=== PATIENT | female | born 1950 | race Caucasian/White ===

== ENCOUNTER 2021-02-26 19:57 | Inpatient (IN) ==
[2021-02-26 20:33] LABS: ABG Base Excess -1 mEq/L (-2 to 3); ABG HCO3 21 mEq/L (21-27); ABG Oxygen Saturation 91 % (95-98); ABG PCO2 29 mmHg (35-45); ABG PH 7.48 pH Units (7.32-7.45); ABG PO2 56 mmHg (85-104); ABG TCO2 22 mEq/L (20-26)
[2021-02-26 21:16] LABS: Basophils % 0.1 %; Hematocrit 42.6 % (35.3-44.9); Hemoglobin 14.5 g/dL (11.5-15.4); Immature Granulocytes % 0.6 % (0-4); Lymphocytes # 0.8 K/mcL (0.6-4.6); Lymphocytes % 9.4 %; Mean Corpuscular Hemoglobin 30.3 pg (28.0-33.3); Mean Corpuscular Volume 88.9 fL (83.0-100.0); Mean Platelet Volume 10.7 fL (9.4-12.4); Monocytes % 12.9 %; Neutrophils # 6.2 K/mcL (1.6-8.9); Platelet Count 143 K/mcL (140-400); Red Blood Count 4.79 M/mcL (3.82-4.97); White Blood Count 8.1 K/mcL (4.3-11.1)
[2021-02-26 21:26] LABS: INR 1.2; Prothrombin Time 13.4 Seconds (9.4-12.1)
[2021-02-26 21:28] LABS: Activated Partial Thrombo Time 25.7 Seconds (26.0-36.0)
[2021-02-26 21:39] LABS: Alanine Aminotransferase 19 Units/L (7-52); Albumin 3.7 g/dL (3.5-5.7); Alkaline Phosphatase 65 Units/L (34-104); Aspartate Amino Transferase 48 Units/L (13-39); BUN/Creatinine Ratio 41 (6-26); Bilirubin,Direct 0.3 mg/dL (0.0-0.2); Bilirubin,Indirect 0.6 mg/dL (0.0-1.0); Bilirubin,Total 0.9 mg/dL (0.3-1.0); Blood Urea Nitrogen 31 mg/dL (8-23); C-Reactive Protein 102 mg/L (Less than 10); Calcium 8.5 mg/dL (8.6-10.3); Carbon Dioxide 22 mEq/L (23-29); Chloride 97 mEq/L (98-107); Globulin 3.6 g/dL (2.4-3.5); Glucose 123 mg/dL (70-105); Lactate Dehydrogenase 294 Units/L (140-271); Magnesium 1.5 mg/dL (1.6-2.6); Osmolality,Calculated 280 (280-300); Phosphorous 2.5 mg/dL (2.7-4.5); Potassium 3.7 mEq/L (3.5-5.1); Sodium 131 mEq/L (136-145); Total Protein 7.3 g/dL (6.4-8.9); Troponin I < 0.03 ng/mL (< 0.04); eGFR For African Americans > 60 (> 60); eGFR For Non-African Americans > 60 (> 60)
[2021-02-26] MEDS ORDERED: Dexamethasone 4 MG/ML VIAL IVP ONE (21:56)
[2021-02-26 21:58] LABS: Ferritin 712 ng/mL (10-120)
[2021-02-26] MEDS ORDERED: Furosemide 40 MG/4 ML VIAL IVP ONE (22:55)
[2021-02-26] MEDS ORDERED: Melatonin 3 MG TABLET PO PRN (23:31)
[2021-02-26] MEDS ORDERED: Ondansetron 4 MG/2 ML VIAL IVP PRN (23:31)
[2021-02-26] MEDS ORDERED: Naloxone 0.4 MG/ML INJ IVP PRN (23:31)
[2021-02-27 00:50] LABS: Hematocrit 42.7 % (35.3-44.9); Hemoglobin 14.1 g/dL (11.5-15.4); Immature Granulocytes % 0.8 % (0-4); Immature Platelets 7.2 % (1.1-6.1); Lymphocytes # 0.5 K/mcL (0.6-4.6); Lymphocytes % 4.9 %; Mean Corpuscular Hemoglobin 29.6 pg (28.0-33.3); Mean Corpuscular Volume 89.7 fL (83.0-100.0); Mean Platelet Volume 10.9 fL (9.4-12.4); Monocytes % 9.8 %; Neutrophils # 8.9 K/mcL (1.6-8.9); Platelet Count 138 K/mcL (140-400); Red Blood Count 4.76 M/mcL (3.82-4.97); Segmented Neutrophils % 84.5 %; White Blood Count 10.5 K/mcL (4.3-11.1)
[2021-02-27 01:08] LABS: BUN/Creatinine Ratio 41 (6-26); Blood Urea Nitrogen 30 mg/dL (8-23); C-Reactive Protein 122 mg/L (Less than 10); Calcium 8.3 mg/dL (8.6-10.3); Carbon Dioxide 21 mEq/L (23-29); Chloride 97 mEq/L (98-107); Glucose 148 mg/dL (70-105); Lactate Dehydrogenase 300 Units/L (140-271); Osmolality,Calculated 279 (280-300); Phosphorous 3.1 mg/dL (2.7-4.5); Sodium 130 mEq/L (136-145); eGFR For African Americans > 60 (> 60); eGFR For Non-African Americans > 60 (> 60)
[2021-02-27 01:26] LABS: Ferritin 704 ng/mL (10-120)
[2021-02-27] MEDS ORDERED: Ipratropium 1 PUFF INHALER IH PRN (02:23)
[2021-02-27] MEDS ORDERED: Furosemide 20 MG/2 ML VIAL IVP ONE (02:25)
[2021-02-27] MEDS ORDERED: *HR* Enoxaparin 150 MG/ML SYRINGE SQ SCH (02:30)
[2021-02-27] MEDS: *HR* Rivaroxaban 15 MG TABLET PO SCH ×2 (03:44→20:04)
[2021-02-27 06:11] LABS: Bacteria,Urine Few per hpf (None-Few); Bilirubin,Urine Negative (Negative); Blood,Urine Trace (Negative); Clarity,Urine Clear (Clear); Color,Urine Yellow (Yellow); Glucose,Urine (UA) Normal (Normal); Ketones,Urine Negative (Negative); Leukocyte Esterase,Urine Small (Negative); Mucus,Urine Few per lpf (None-Few); Nitrite,Urine Positive (Negative); Protein,Urine 50 mg/dL (Neg-Trace); RBC,Urine 0-3 per hpf (0-3); Specific Gravity,Urine 1.022 (1.010-1.025); Squamous Epithelial Cell,Urine Few per hpf (None-Few); Urobilinogen,Urine Normal (Normal)
[2021-02-27] MEDS ORDERED: Dexamethasone Sodium Phos/PF 10 MG/ML VIAL IVP SCH (09:00)
[2021-02-27] MEDS ORDERED: lisinopriL 20 MG TABLET PO SCH (09:00)
[2021-02-27] MEDS: atenoloL 50 MG TABLET PO SCH (09:05)
[2021-02-27] MEDS: Acetaminophen 325 MG TABLET PO PRN (09:18)
[2021-02-27] MEDS ORDERED: Cefepime HCl 1,000 MG in 0.9 % Sodium Chloride Mini Bag 100 ML IVPB SCH (09:39)
[2021-02-27] MEDS ORDERED: Dexamethasone 4 MG/ML VIAL IVP ONE (14:57)
[2021-02-27] MEDS: Cefepime HCl 2,000 MG in 0.9 % Sodium Chloride Mini Bag 100 ML IVPB SCH (20:04)
[2021-02-28 03:26] LABS: Red Blood Count 4.53 M/mcL (3.82-4.97)
[2021-02-28 03:28] LABS: Hematocrit 41.6 % (35.3-44.9); Hemoglobin 13.6 g/dL (11.5-15.4); Immature Platelets 8.7 % (1.1-6.1); Mean Corpuscular HGB Conc 32.7 g/dL (31.6-35.5); Mean Corpuscular Volume 91.8 fL (83.0-100.0); Mean Platelet Volume 11.4 fL (9.4-12.4); Red Cell Distribution Width 13.3 % (11.5-14.5); White Blood Count 12.8 K/mcL (4.3-11.1)
[2021-02-28 03:58] LABS: BUN/Creatinine Ratio 42 (6-26); Blood Urea Nitrogen 40 mg/dL (8-23); Calcium 8.2 mg/dL (8.6-10.3); Carbon Dioxide 19 mEq/L (23-29); Chloride 98 mEq/L (98-107); Glucose 129 mg/dL (70-105); Osmolality,Calculated 277 (280-300); Potassium 4.2 mEq/L (3.5-5.1); Sodium 128 mEq/L (136-145); eGFR For African Americans > 60 (> 60); eGFR For Non-African Americans 58 (> 60)
[2021-02-28] MEDS: Cefepime HCl 2,000 MG in 0.9 % Sodium Chloride Mini Bag 100 ML IVPB SCH ×3 (05:42→20:19)
[2021-02-28] MEDS ORDERED: Furosemide 40 MG/4 ML VIAL IVP ONE (06:00)
[2021-02-28] MEDS: Dexamethasone Sodium Phos/PF 10 MG/ML VIAL IVP SCH (10:29)
[2021-02-28] MEDS: *HR* Rivaroxaban 15 MG TABLET PO SCH (10:29)
[2021-02-28] MEDS: atenoloL 50 MG TABLET PO SCH (10:30)
[2021-02-28] MEDS ORDERED: *HR* Enoxaparin 120 MG/0.8 ML SYRINGE SQ SCH (18:00)
[2021-02-28] MEDS ORDERED: Heparin 25,000UNIT/250ML 1/2NS 25,000 UNIT/250 ML IV.SOLN IVC SCH (22:30)
[2021-02-28] MEDS ORDERED: *HR* Heparin 5,000 UNIT/ML VIAL IVP PRN ×2 (22:30)
[2021-02-28] MEDS: Heparin 25,000UNIT/250ML 1/2NS 25,000 UNIT/250 ML IV.SOLN IVC SCH (22:58)
[2021-03-01] MEDS: Cefepime HCl 2,000 MG in 0.9 % Sodium Chloride Mini Bag 100 ML IVPB SCH ×3 (03:39→20:24)
[2021-03-01 06:11] LABS: Basophils % 0.1 %; Hematocrit 41.9 % (35.3-44.9); Immature Granulocytes % 0.7 % (0-4); Lymphocytes # 1.1 K/mcL (0.6-4.6); Lymphocytes % 11.9 %; Mean Corpuscular HGB Conc 33.4 g/dL (31.6-35.5); Mean Corpuscular Hemoglobin 29.8 pg (28.0-33.3); Mean Corpuscular Volume 89.1 fL (83.0-100.0); Mean Platelet Volume 11.1 fL (9.4-12.4); Monocytes # 0.7 K/mcL (0.0-1.3); Monocytes % 7.3 %; Neutrophils # 7.5 K/mcL (1.6-8.9); Platelet Count 209 K/mcL (140-400); White Blood Count 9.4 K/mcL (4.3-11.1)
[2021-03-01 06:14] LABS: BUN/Creatinine Ratio 48 (6-26); Blood Urea Nitrogen 43 mg/dL (8-23); Carbon Dioxide 22 mEq/L (23-29); Chloride 99 mEq/L (98-107); Glucose 126 mg/dL (70-105); Potassium 4.4 mEq/L (3.5-5.1); Sodium 130 mEq/L (136-145); eGFR For African Americans > 60 (> 60); eGFR For Non-African Americans > 60 (> 60)
[2021-03-01 06:15] LABS: Alanine Aminotransferase 14 Units/L (7-52); Albumin 3.2 g/dL (3.5-5.7); Albumin/Globulin Ratio 0.9 (1.1-2.2); Alkaline Phosphatase 56 Units/L (34-104); Aspartate Amino Transferase 26 Units/L (13-39); Bilirubin,Total 0.9 mg/dL (0.3-1.0); Calcium 8.5 mg/dL (8.6-10.3); Globulin 3.6 g/dL (2.4-3.5); Osmolality,Calculated 282 (280-300); Total Protein 6.8 g/dL (6.4-8.9)
[2021-03-01] MEDS: atenoloL 50 MG TABLET PO SCH (07:23)
[2021-03-01] MEDS: Dexamethasone Sodium Phos/PF 10 MG/ML VIAL IVP SCH (07:23)
[2021-03-01] MEDS: Heparin 25,000UNIT/250ML 1/2NS 25,000 UNIT/250 ML IV.SOLN IVC SCH (16:41)
[2021-03-01] MEDS ORDERED: Cefepime HCl 2,000 MG in 0.9 % Sodium Chloride Mini Bag 100 ML IVPB SCH (18:00)
[2021-03-01] MEDS: Sennosides/Docusate Sodium TABLET PO SCH (20:25)
[2021-03-01] MEDS: Acetaminophen 325 MG TABLET PO PRN (20:26)
[2021-03-02 04:39] LABS: Basophils % 0.2 %; Hematocrit 42.6 % (35.3-44.9); Hemoglobin 14.4 g/dL (11.5-15.4); Immature Granulocytes % 0.8 % (0-4); Lymphocytes # 1.3 K/mcL (0.6-4.6); Lymphocytes % 10.3 %; Mean Corpuscular HGB Conc 33.8 g/dL (31.6-35.5); Mean Corpuscular Hemoglobin 30.6 pg (28.0-33.3); Mean Corpuscular Volume 90.4 fL (83.0-100.0); Mean Platelet Volume 10.8 fL (9.4-12.4); Monocytes # 1.1 K/mcL (0.0-1.3); Monocytes % 8.3 %; Neutrophils # 10.2 K/mcL (1.6-8.9); Platelet Count 208 K/mcL (140-400); Red Blood Count 4.71 M/mcL (3.82-4.97); Red Cell Distribution Width 12.8 % (11.5-14.5); Segmented Neutrophils % 80.4 %; White Blood Count 12.6 K/mcL (4.3-11.1)
[2021-03-02 05:02] LABS: BUN/Creatinine Ratio 57 (6-26); Blood Urea Nitrogen 47 mg/dL (8-23); Calcium 8.4 mg/dL (8.6-10.3); Carbon Dioxide 19 mEq/L (23-29); Chloride 101 mEq/L (98-107); Glucose 129 mg/dL (70-105); Osmolality,Calculated 284 (280-300); Potassium 4.7 mEq/L (3.5-5.1); Sodium 130 mEq/L (136-145); eGFR For African Americans > 60 (> 60); eGFR For Non-African Americans > 60 (> 60)
[2021-03-02] MEDS: Cefepime HCl 2,000 MG in 0.9 % Sodium Chloride Mini Bag 100 ML IVPB SCH ×3 (05:37→20:56)
[2021-03-02] MEDS: Sennosides/Docusate Sodium TABLET PO SCH ×2 (07:39→20:57)
[2021-03-02] MEDS: Dexamethasone Sodium Phos/PF 10 MG/ML VIAL IVP SCH (07:40)
[2021-03-02] MEDS: atenoloL 50 MG TABLET PO SCH (09:22)
[2021-03-02] MEDS: Heparin 25,000UNIT/250ML 1/2NS 25,000 UNIT/250 ML IV.SOLN IVC SCH ×2 (13:19→15:39)
[2021-03-02] MEDS: Acetaminophen 325 MG TABLET PO PRN (20:58)
[2021-03-03] MEDS: Cefepime HCl 2,000 MG in 0.9 % Sodium Chloride Mini Bag 100 ML IVPB SCH ×3 (05:16→20:24)
[2021-03-03] MEDS: Acetaminophen 325 MG TABLET PO PRN (05:52)
[2021-03-03] MEDS: atenoloL 50 MG TABLET PO SCH (08:08)
[2021-03-03] MEDS: Dexamethasone Sodium Phos/PF 10 MG/ML VIAL IVP SCH (08:08)
[2021-03-03] MEDS: Sennosides/Docusate Sodium TABLET PO SCH ×2 (08:08→20:24)
[2021-03-03] MEDS: Heparin 25,000UNIT/250ML 1/2NS 25,000 UNIT/250 ML IV.SOLN IVC SCH ×2 (09:22→20:19)
[2021-03-03] MEDS: Benzonatate 100 MG CAPSULE PO PRN ×2 (11:14→20:25)
[2021-03-03] MEDS: Melatonin 3 MG TABLET PO SCH (20:25)
[2021-03-04 02:03] LABS: Basophils % 0.3 %; Eosinophils % 0.3 %; Hematocrit 40.2 % (35.3-44.9); Hemoglobin 13.4 g/dL (11.5-15.4); Immature Granulocytes % 2.1 % (0-4); Lymphocytes # 1.1 K/mcL (0.6-4.6); Lymphocytes % 9.1 %; Mean Corpuscular HGB Conc 33.3 g/dL (31.6-35.5); Mean Corpuscular Hemoglobin 29.8 pg (28.0-33.3); Mean Corpuscular Volume 89.3 fL (83.0-100.0); Mean Platelet Volume 10.5 fL (9.4-12.4); Monocytes # 1.1 K/mcL (0.0-1.3); Monocytes % 9.6 %; Neutrophils # 9.3 K/mcL (1.6-8.9); Platelet Count 206 K/mcL (140-400); Red Cell Distribution Width 12.6 % (11.5-14.5); Segmented Neutrophils % 78.6 %; White Blood Count 11.8 K/mcL (4.3-11.1)
[2021-03-04 02:36] LABS: BUN/Creatinine Ratio 48 (6-26); Blood Urea Nitrogen 32 mg/dL (8-23); Calcium 8.2 mg/dL (8.6-10.3); Carbon Dioxide 19 mEq/L (23-29); Chloride 102 mEq/L (98-107); Glucose 151 mg/dL (70-105); Osmolality,Calculated 276 (280-300); Potassium 4.9 mEq/L (3.5-5.1); Sodium 128 mEq/L (136-145); eGFR For African Americans > 60 (> 60); eGFR For Non-African Americans > 60 (> 60)
[2021-03-04] MEDS: Cefepime HCl 2,000 MG in 0.9 % Sodium Chloride Mini Bag 100 ML IVPB SCH ×3 (05:20→20:01)
[2021-03-04] MEDS: Dexamethasone Sodium Phos/PF 10 MG/ML VIAL IVP SCH (07:41)
[2021-03-04] MEDS: Sennosides/Docusate Sodium TABLET PO SCH ×2 (07:41→20:01)
[2021-03-04] MEDS: atenoloL 50 MG TABLET PO SCH (07:42)
[2021-03-04] MEDS: *HR* Rivaroxaban 15 MG TABLET PO SCH ×2 (10:38→20:01)
[2021-03-04] MEDS: Melatonin 3 MG TABLET PO SCH (20:01)
[2021-03-05] MEDS: Cefepime HCl 2,000 MG in 0.9 % Sodium Chloride Mini Bag 100 ML IVPB SCH (05:55)
[2021-03-05] MEDS: *HR* Rivaroxaban 15 MG TABLET PO SCH ×2 (09:00→21:20)
[2021-03-05] MEDS: Dexamethasone Sodium Phos/PF 10 MG/ML VIAL IVP SCH (09:00)
[2021-03-05] MEDS: Sennosides/Docusate Sodium TABLET PO SCH ×2 (09:00→21:20)
[2021-03-05] MEDS: atenoloL 50 MG TABLET PO SCH (09:00)
[2021-03-05] MEDS: cefTRIAXone 2,000 MG in Water for inj. (sterile) 20 ML IVP SCH (10:58)
[2021-03-05] MEDS ORDERED: MOM Conc 10 ML UD.LIQ PO PRN (11:57)
[2021-03-05] MEDS: Melatonin 3 MG TABLET PO SCH (21:20)
[2021-03-06 00:59] LABS: Hematocrit 41.9 % (35.3-44.9); Hemoglobin 14.5 g/dL (11.5-15.4); Mean Corpuscular HGB Conc 34.6 g/dL (31.6-35.5); Mean Corpuscular Hemoglobin 30.9 pg (28.0-33.3); Mean Corpuscular Volume 89.3 fL (83.0-100.0); Mean Platelet Volume 10.4 fL (9.4-12.4); Platelet Count 247 K/mcL (140-400); Red Blood Count 4.69 M/mcL (3.82-4.97); Red Cell Distribution Width 12.8 % (11.5-14.5); White Blood Count 13.1 K/mcL (4.3-11.1)
[2021-03-06 01:19] LABS: BUN/Creatinine Ratio 46 (6-26); Blood Urea Nitrogen 33 mg/dL (8-23); Calcium 8.7 mg/dL (8.6-10.3); Carbon Dioxide 20 mEq/L (23-29); Chloride 100 mEq/L (98-107); Glucose 155 mg/dL (70-105); Osmolality,Calculated 280 (280-300); Potassium 4.7 mEq/L (3.5-5.1); Sodium 130 mEq/L (136-145); eGFR For African Americans > 60 (> 60); eGFR For Non-African Americans > 60 (> 60)
[2021-03-06] MEDS: cefTRIAXone 2,000 MG in Water for inj. (sterile) 20 ML IVP SCH (08:58)
[2021-03-06] MEDS: *HR* Rivaroxaban 15 MG TABLET PO SCH ×2 (08:58→19:59)
[2021-03-06] MEDS: Sennosides/Docusate Sodium TABLET PO SCH ×2 (08:58→19:59)
[2021-03-06] MEDS: Dexamethasone Sodium Phos/PF 10 MG/ML VIAL IVP SCH (08:58)
[2021-03-06] MEDS: atenoloL 50 MG TABLET PO SCH (08:58)
[2021-03-06] MEDS: Furosemide 20 MG/2 ML VIAL IVP SCH (15:16)
[2021-03-06] MEDS: Melatonin 3 MG TABLET PO SCH (19:59)
[2021-03-07 02:00] LABS: Basophils # 0.1 K/mcL (0.0-0.2); Basophils % 0.5 %; Eosinophils # 0.3 K/mcL (0.0-0.6); Hematocrit 43.7 % (35.3-44.9); Hemoglobin 14.5 g/dL (11.5-15.4); Immature Granulocytes % 5.1 % (0-4); Lymphocytes # 1.5 K/mcL (0.6-4.6); Lymphocytes % 10.7 %; Mean Corpuscular HGB Conc 33.2 g/dL (31.6-35.5); Mean Corpuscular Hemoglobin 29.9 pg (28.0-33.3); Mean Corpuscular Volume 90.1 fL (83.0-100.0); Mean Platelet Volume 10.7 fL (9.4-12.4); Monocytes # 1.1 K/mcL (0.0-1.3); Monocytes % 7.9 %; Neutrophils # 10.2 K/mcL (1.6-8.9); Platelet Count 264 K/mcL (140-400); Red Blood Count 4.85 M/mcL (3.82-4.97); Red Cell Distribution Width 12.9 % (11.5-14.5); Segmented Neutrophils % 73.8 %; White Blood Count 13.8 K/mcL (4.3-11.1)
[2021-03-07 02:19] LABS: Alanine Aminotransferase 11 Units/L (7-52); Albumin 3.3 g/dL (3.5-5.7); Alkaline Phosphatase 77 Units/L (34-104); Aspartate Amino Transferase 12 Units/L (13-39); BUN/Creatinine Ratio 53 (6-26); Bilirubin,Total 0.6 mg/dL (0.3-1.0); Blood Urea Nitrogen 42 mg/dL (8-23); Calcium 8.9 mg/dL (8.6-10.3); Carbon Dioxide 20 mEq/L (23-29); Chloride 99 mEq/L (98-107); Globulin 3.4 g/dL (2.4-3.5); Glucose 170 mg/dL (70-105); Osmolality,Calculated 284 (280-300); Potassium 4.9 mEq/L (3.5-5.1); Sodium 130 mEq/L (136-145); Total Protein 6.7 g/dL (6.4-8.9); eGFR For African Americans > 60 (> 60); eGFR For Non-African Americans > 60 (> 60)
[2021-03-07 02:24] LABS: Platelet Estimate Normal (Normal)
[2021-03-07] MEDS: Dexamethasone Sodium Phos/PF 10 MG/ML VIAL IVP SCH (08:33)
[2021-03-07] MEDS: cefTRIAXone 2,000 MG in Water for inj. (sterile) 20 ML IVP SCH (08:34)
[2021-03-07] MEDS: atenoloL 50 MG TABLET PO SCH (08:34)
[2021-03-07] MEDS: Sennosides/Docusate Sodium TABLET PO SCH ×2 (08:34→20:06)
[2021-03-07] MEDS: Furosemide 20 MG/2 ML VIAL IVP SCH (08:34)
[2021-03-07] MEDS: *HR* Rivaroxaban 15 MG TABLET PO SCH ×2 (08:34→20:06)
[2021-03-07] MEDS: Melatonin 3 MG TABLET PO SCH (20:06)
[2021-03-08 07:11] LABS: Basophils # 0.1 K/mcL (0.0-0.2); Basophils % 0.5 %; Eosinophils # 0.4 K/mcL (0.0-0.6); Eosinophils % 2.7 %; Hematocrit 44.8 % (35.3-44.9); Hemoglobin 14.8 g/dL (11.5-15.4); Immature Granulocytes % 3.1 % (0-4); Lymphocytes # 2.1 K/mcL (0.6-4.6); Lymphocytes % 12.9 %; Mean Corpuscular Hemoglobin 29.8 pg (28.0-33.3); Mean Corpuscular Volume 90.3 fL (83.0-100.0); Mean Platelet Volume 10.4 fL (9.4-12.4); Monocytes # 1.2 K/mcL (0.0-1.3); Monocytes % 7.6 %; Neutrophils # 11.8 K/mcL (1.6-8.9); Platelet Count 258 K/mcL (140-400); Red Blood Count 4.96 M/mcL (3.82-4.97); Red Cell Distribution Width 13.1 % (11.5-14.5); Segmented Neutrophils % 73.2 %; White Blood Count 16.1 K/mcL (4.3-11.1)
[2021-03-08 07:53] LABS: Alanine Aminotransferase 11 Units/L (7-52); Albumin 3.4 g/dL (3.5-5.7); Alkaline Phosphatase 77 Units/L (34-104); Aspartate Amino Transferase 11 Units/L (13-39); BUN/Creatinine Ratio 68 (6-26); Bilirubin,Total 0.7 mg/dL (0.3-1.0); Blood Urea Nitrogen 54 mg/dL (8-23); Carbon Dioxide 21 mEq/L (23-29); Chloride 98 mEq/L (98-107); Globulin 3.3 g/dL (2.4-3.5); Glucose 117 mg/dL (70-105); Osmolality,Calculated 284 (280-300); Potassium 4.7 mEq/L (3.5-5.1); Sodium 129 mEq/L (136-145); Total Protein 6.7 g/dL (6.4-8.9); eGFR For African Americans > 60 (> 60); eGFR For Non-African Americans > 60 (> 60)
[2021-03-08] MEDS: Furosemide 20 MG/2 ML VIAL IVP SCH (08:59)
[2021-03-08] MEDS: Dexamethasone Sodium Phos/PF 10 MG/ML VIAL IVP SCH (08:59)
[2021-03-08] MEDS: cefTRIAXone 2,000 MG in Water for inj. (sterile) 20 ML IVP SCH (08:59)
[2021-03-08] MEDS: Sennosides/Docusate Sodium TABLET PO SCH ×2 (09:00→21:57)
[2021-03-08] MEDS: *HR* Rivaroxaban 15 MG TABLET PO SCH ×2 (09:00→21:58)
[2021-03-08] MEDS: atenoloL 50 MG TABLET PO SCH (09:00)
[2021-03-08] MEDS: Melatonin 3 MG TABLET PO SCH (21:59)
[2021-03-09 01:51] LABS: Basophils # 0.1 K/mcL (0.0-0.2); Basophils % 0.3 %; Eosinophils # 0.1 K/mcL (0.0-0.6); Eosinophils % 0.6 %; Hematocrit 44.7 % (35.3-44.9); Hemoglobin 15.2 g/dL (11.5-15.4); Lymphocytes # 1.5 K/mcL (0.6-4.6); Lymphocytes % 8.3 %; Mean Corpuscular Hemoglobin 30.6 pg (28.0-33.3); Mean Corpuscular Volume 89.9 fL (83.0-100.0); Mean Platelet Volume 10.3 fL (9.4-12.4); Neutrophils # 14.4 K/mcL (1.6-8.9); Platelet Count 244 K/mcL (140-400); Red Blood Count 4.97 M/mcL (3.82-4.97); Red Cell Distribution Width 12.9 % (11.5-14.5); Segmented Neutrophils % 82.8 %; White Blood Count 17.4 K/mcL (4.3-11.1)
[2021-03-09 02:09] LABS: Alanine Aminotransferase 11 Units/L (7-52); Albumin 3.3 g/dL (3.5-5.7); Alkaline Phosphatase 82 Units/L (34-104); Aspartate Amino Transferase 13 Units/L (13-39); BUN/Creatinine Ratio 71 (6-26); Bilirubin,Total 0.5 mg/dL (0.3-1.0); Blood Urea Nitrogen 50 mg/dL (8-23); Calcium 8.6 mg/dL (8.6-10.3); Carbon Dioxide 18 mEq/L (23-29); Chloride 100 mEq/L (98-107); Globulin 3.4 g/dL (2.4-3.5); Glucose 159 mg/dL (70-105); Osmolality,Calculated 281 (280-300); Potassium 5.1 mEq/L (3.5-5.1); Sodium 127 mEq/L (136-145); Total Protein 6.7 g/dL (6.4-8.9); eGFR For African Americans > 60 (> 60); eGFR For Non-African Americans > 60 (> 60)
[2021-03-09] MEDS: *HR* Rivaroxaban 15 MG TABLET PO SCH ×2 (09:20→20:56)
[2021-03-09] MEDS: Dexamethasone Sodium Phos/PF 10 MG/ML VIAL IVP SCH (09:20)
[2021-03-09] MEDS: Sennosides/Docusate Sodium TABLET PO SCH ×2 (09:20→20:56)
[2021-03-09] MEDS: atenoloL 50 MG TABLET PO SCH (09:20)
[2021-03-09] MEDS: cefTRIAXone 2,000 MG in Water for inj. (sterile) 20 ML IVP SCH (09:21)
[2021-03-09 12:57] LABS: Fibrinogen 498 mg/dL (169-393)
[2021-03-09 12:59] LABS: D-Dimer 1177 ng/mLFEU (0-500)
[2021-03-09] MEDS: Melatonin 3 MG TABLET PO SCH (20:57)
[2021-03-10 01:58] LABS: Basophils % 0.2 %; Eosinophils # 0.1 K/mcL (0.0-0.6); Eosinophils % 0.3 %; Hematocrit 42.2 % (35.3-44.9); Hemoglobin 14.3 g/dL (11.5-15.4); Immature Granulocytes % 1.9 % (0-4); Lymphocytes # 1.4 K/mcL (0.6-4.6); Lymphocytes % 8.2 %; Mean Corpuscular HGB Conc 33.9 g/dL (31.6-35.5); Mean Corpuscular Hemoglobin 30.3 pg (28.0-33.3); Mean Corpuscular Volume 89.4 fL (83.0-100.0); Mean Platelet Volume 10.3 fL (9.4-12.4); Monocytes # 1.1 K/mcL (0.0-1.3); Monocytes % 6.1 %; Neutrophils # 14.6 K/mcL (1.6-8.9); Platelet Count 217 K/mcL (140-400); Red Blood Count 4.72 M/mcL (3.82-4.97); Red Cell Distribution Width 12.9 % (11.5-14.5); Segmented Neutrophils % 83.3 %; White Blood Count 17.6 K/mcL (4.3-11.1)
[2021-03-10 02:21] LABS: Alanine Aminotransferase 10 Units/L (7-52); Albumin 3.2 g/dL (3.5-5.7); Alkaline Phosphatase 86 Units/L (34-104); Aspartate Amino Transferase 10 Units/L (13-39); BUN/Creatinine Ratio 78 (6-26); Bilirubin,Total 0.4 mg/dL (0.3-1.0); Blood Urea Nitrogen 49 mg/dL (8-23); Calcium 8.7 mg/dL (8.6-10.3); Carbon Dioxide 18 mEq/L (23-29); Chloride 102 mEq/L (98-107); Globulin 3.2 g/dL (2.4-3.5); Glucose 160 mg/dL (70-105); Osmolality,Calculated 282 (280-300); Potassium 5.3 mEq/L (3.5-5.1); Sodium 128 mEq/L (136-145); Total Protein 6.4 g/dL (6.4-8.9); eGFR For African Americans > 60 (> 60); eGFR For Non-African Americans > 60 (> 60)
[2021-03-10] MEDS: cefTRIAXone 2,000 MG in Water for inj. (sterile) 20 ML IVP SCH (09:33)
[2021-03-10] MEDS: atenoloL 50 MG TABLET PO SCH (09:33)
[2021-03-10] MEDS: Sennosides/Docusate Sodium TABLET PO SCH ×2 (09:33→20:02)
[2021-03-10] MEDS: *HR* Rivaroxaban 15 MG TABLET PO SCH ×2 (09:33→20:02)
[2021-03-10] MEDS: Dexamethasone Sodium Phos/PF 10 MG/ML VIAL IVP SCH (09:34)
[2021-03-10] MEDS: Melatonin 3 MG TABLET PO SCH (20:02)
[2021-03-11 01:54] LABS: Basophils % 0.2 %; Eosinophils % 0.2 %; Hematocrit 40.7 % (35.3-44.9); Hemoglobin 13.9 g/dL (11.5-15.4); Immature Granulocytes % 1.3 % (0-4); Lymphocytes # 1.4 K/mcL (0.6-4.6); Lymphocytes % 7.4 %; Mean Corpuscular HGB Conc 34.2 g/dL (31.6-35.5); Mean Corpuscular Volume 90.6 fL (83.0-100.0); Mean Platelet Volume 10.2 fL (9.4-12.4); Monocytes # 1.1 K/mcL (0.0-1.3); Monocytes % 5.8 %; Neutrophils # 16.3 K/mcL (1.6-8.9); Platelet Count 213 K/mcL (140-400); Red Blood Count 4.49 M/mcL (3.82-4.97); Segmented Neutrophils % 85.1 %; White Blood Count 19.2 K/mcL (4.3-11.1)
[2021-03-11 02:07] LABS: Alanine Aminotransferase 9 Units/L (7-52); Albumin 3.1 g/dL (3.5-5.7); Alkaline Phosphatase 79 Units/L (34-104); Aspartate Amino Transferase 10 Units/L (13-39); BUN/Creatinine Ratio 73 (6-26); Bilirubin,Total 0.5 mg/dL (0.3-1.0); Blood Urea Nitrogen 53 mg/dL (8-23); Calcium 8.9 mg/dL (8.6-10.3); Carbon Dioxide 20 mEq/L (23-29); Chloride 102 mEq/L (98-107); Glucose 181 mg/dL (70-105); Osmolality,Calculated 287 (280-300); Potassium 5.2 mEq/L (3.5-5.1); Sodium 129 mEq/L (136-145); Total Protein 6.1 g/dL (6.4-8.9); eGFR For African Americans > 60 (> 60); eGFR For Non-African Americans > 60 (> 60)
[2021-03-11] MEDS: *HR* Rivaroxaban 15 MG TABLET PO SCH ×2 (08:09→23:01)
[2021-03-11] MEDS: Sennosides/Docusate Sodium TABLET PO SCH ×2 (08:09→23:01)
[2021-03-11] MEDS: atenoloL 50 MG TABLET PO SCH ×2 (08:09→08:13)
[2021-03-11] MEDS: Dexamethasone Sodium Phos/PF 10 MG/ML VIAL IVP SCH (08:10)
[2021-03-11] MEDS: cefTRIAXone 2,000 MG in Water for inj. (sterile) 20 ML IVP SCH (10:23)
[2021-03-11] MEDS: Melatonin 3 MG TABLET PO SCH (23:01)
[2021-03-12 06:18] LABS: Basophils % 0.2 %; Eosinophils # 0.3 K/mcL (0.0-0.6); Eosinophils % 1.4 %; Hemoglobin 14.3 g/dL (11.5-15.4); Immature Granulocytes % 0.9 % (0-4); Lymphocytes # 2.1 K/mcL (0.6-4.6); Lymphocytes % 10.4 %; Mean Corpuscular HGB Conc 33.3 g/dL (31.6-35.5); Mean Corpuscular Hemoglobin 30.3 pg (28.0-33.3); Mean Corpuscular Volume 91.1 fL (83.0-100.0); Mean Platelet Volume 10.3 fL (9.4-12.4); Monocytes # 1.5 K/mcL (0.0-1.3); Monocytes % 7.2 %; Neutrophils # 16.3 K/mcL (1.6-8.9); Platelet Count 202 K/mcL (140-400); Red Blood Count 4.72 M/mcL (3.82-4.97); Red Cell Distribution Width 13.1 % (11.5-14.5); Segmented Neutrophils % 79.9 %; White Blood Count 20.4 K/mcL (4.3-11.1)
[2021-03-12 06:43] LABS: Alanine Aminotransferase 10 Units/L (7-52); Albumin 3.3 g/dL (3.5-5.7); Alkaline Phosphatase 77 Units/L (34-104); Aspartate Amino Transferase 11 Units/L (13-39); BUN/Creatinine Ratio 65 (6-26); Bilirubin,Total 0.7 mg/dL (0.3-1.0); Blood Urea Nitrogen 53 mg/dL (8-23); Calcium 9.4 mg/dL (8.6-10.3); Carbon Dioxide 22 mEq/L (23-29); Chloride 99 mEq/L (98-107); Globulin 3.2 g/dL (2.4-3.5); Glucose 118 mg/dL (70-105); Osmolality,Calculated 283 (280-300); Potassium 5.3 mEq/L (3.5-5.1); Sodium 129 mEq/L (136-145); Total Protein 6.5 g/dL (6.4-8.9); eGFR For African Americans > 60 (> 60); eGFR For Non-African Americans > 60 (> 60)
[2021-03-12] MEDS: Sennosides/Docusate Sodium TABLET PO SCH ×2 (08:53→20:05)
[2021-03-12] MEDS: *HR* Rivaroxaban 15 MG TABLET PO SCH ×2 (08:53→20:05)
[2021-03-12] MEDS: cefTRIAXone 2,000 MG in Water for inj. (sterile) 20 ML IVP SCH (08:53)
[2021-03-12] MEDS: atenoloL 50 MG TABLET PO SCH (08:53)
[2021-03-12] MEDS: Dexamethasone Sodium Phos/PF 10 MG/ML VIAL IVP SCH (08:54)
[2021-03-12 09:01] LABS: Fibrinogen 358 mg/dL (169-393)
[2021-03-12 09:04] LABS: D-Dimer 680 ng/mLFEU (0-500)
[2021-03-12] MEDS: Magic Mouthwash 10 ML UD Cup PO SCH (16:26)
[2021-03-12] MEDS: Melatonin 3 MG TABLET PO SCH (20:05)
[2021-03-13 05:58] LABS: Basophils % 0.2 %; Eosinophils # 0.3 K/mcL (0.0-0.6); Eosinophils % 1.5 %; Hematocrit 41.9 % (35.3-44.9); Hemoglobin 14.2 g/dL (11.5-15.4); Immature Granulocytes % 0.9 % (0-4); Lymphocytes % 11.4 %; Mean Corpuscular HGB Conc 33.9 g/dL (31.6-35.5); Mean Corpuscular Hemoglobin 30.9 pg (28.0-33.3); Mean Corpuscular Volume 91.1 fL (83.0-100.0); Mean Platelet Volume 10.1 fL (9.4-12.4); Monocytes # 1.2 K/mcL (0.0-1.3); Monocytes % 6.7 %; Neutrophils # 13.8 K/mcL (1.6-8.9); Platelet Count 187 K/mcL (140-400); Red Cell Distribution Width 13.2 % (11.5-14.5); Segmented Neutrophils % 79.3 %; White Blood Count 17.4 K/mcL (4.3-11.1)
[2021-03-13 06:21] LABS: Alanine Aminotransferase 10 Units/L (7-52); Albumin 3.4 g/dL (3.5-5.7); Albumin/Globulin Ratio 1.1 (1.1-2.2); Alkaline Phosphatase 79 Units/L (34-104); Aspartate Amino Transferase 11 Units/L (13-39); BUN/Creatinine Ratio 67 (6-26); Bilirubin,Total 0.7 mg/dL (0.3-1.0); Blood Urea Nitrogen 52 mg/dL (8-23); Calcium 9.3 mg/dL (8.6-10.3); Carbon Dioxide 22 mEq/L (23-29); Chloride 102 mEq/L (98-107); Glucose 132 mg/dL (70-105); Osmolality,Calculated 290 (280-300); Potassium 5.1 mEq/L (3.5-5.1); Sodium 132 mEq/L (136-145); Total Protein 6.4 g/dL (6.4-8.9); eGFR For African Americans > 60 (> 60); eGFR For Non-African Americans > 60 (> 60)
[2021-03-13] MEDS: Dexamethasone Sodium Phos/PF 10 MG/ML VIAL IVP SCH (07:51)
[2021-03-13] MEDS: Magic Mouthwash 10 ML UD Cup PO SCH ×3 (07:51→16:11)
[2021-03-13] MEDS: atenoloL 50 MG TABLET PO SCH (07:51)
[2021-03-13] MEDS: *HR* Rivaroxaban 15 MG TABLET PO SCH ×2 (07:52→20:20)
[2021-03-13] MEDS: Sennosides/Docusate Sodium TABLET PO SCH ×2 (07:52→20:20)
[2021-03-13] MEDS: Melatonin 3 MG TABLET PO SCH (20:20)
[2021-03-14] MEDS: Dexamethasone Sodium Phos/PF 10 MG/ML VIAL IVP SCH (07:51)
[2021-03-14] MEDS: Magic Mouthwash 10 ML UD Cup PO SCH ×3 (07:51→17:36)
[2021-03-14] MEDS: atenoloL 50 MG TABLET PO SCH (07:51)
[2021-03-14] MEDS: *HR* Rivaroxaban 15 MG TABLET PO SCH ×2 (07:51→22:26)
[2021-03-14] MEDS: Sennosides/Docusate Sodium TABLET PO SCH ×2 (07:51→22:26)
[2021-03-14] MEDS: Melatonin 3 MG TABLET PO SCH (22:26)
[2021-03-15 08:04] LABS: Basophils % 0.3 %; Eosinophils # 0.3 K/mcL (0.0-0.6); Eosinophils % 1.9 %; Hematocrit 42.7 % (35.3-44.9); Immature Granulocytes % 0.9 % (0-4); Lymphocytes # 2.6 K/mcL (0.6-4.6); Lymphocytes % 15.9 %; Mean Corpuscular HGB Conc 32.8 g/dL (31.6-35.5); Mean Corpuscular Hemoglobin 30.2 pg (28.0-33.3); Mean Platelet Volume 10.1 fL (9.4-12.4); Monocytes % 6.1 %; Platelet Count 184 K/mcL (140-400); Red Blood Count 4.64 M/mcL (3.82-4.97); Red Cell Distribution Width 13.3 % (11.5-14.5); Segmented Neutrophils % 74.9 %
[2021-03-15] MEDS: atenoloL 50 MG TABLET PO SCH (08:32)
[2021-03-15] MEDS: Magic Mouthwash 10 ML UD Cup PO SCH ×3 (08:32→16:41)
[2021-03-15] MEDS: Sennosides/Docusate Sodium TABLET PO SCH ×2 (08:32→20:58)
[2021-03-15] MEDS: *HR* Rivaroxaban 15 MG TABLET PO SCH ×2 (08:33→20:58)
[2021-03-15] MEDS: dexAMETHasone 4 MG TABLET PO SCH (08:33)
[2021-03-15 08:56] LABS: BUN/Creatinine Ratio 63 (6-26); Blood Urea Nitrogen 54 mg/dL (8-23); Calcium 9.2 mg/dL (8.6-10.3); Carbon Dioxide 21 mEq/L (23-29); Chloride 103 mEq/L (98-107); Glucose 130 mg/dL (70-105); Osmolality,Calculated 289 (280-300); Sodium 131 mEq/L (136-145); eGFR For African Americans > 60 (> 60); eGFR For Non-African Americans > 60 (> 60)
[2021-03-15] MEDS: Melatonin 3 MG TABLET PO SCH (20:58)
[2021-03-16 02:19] LABS: Basophils % 0.1 %; Eosinophils # 0.1 K/mcL (0.0-0.6); Eosinophils % 0.7 %; Hematocrit 40.3 % (35.3-44.9); Hemoglobin 13.4 g/dL (11.5-15.4); Lymphocytes # 1.7 K/mcL (0.6-4.6); Lymphocytes % 12.5 %; Mean Corpuscular HGB Conc 33.3 g/dL (31.6-35.5); Mean Corpuscular Hemoglobin 30.2 pg (28.0-33.3); Mean Corpuscular Volume 90.8 fL (83.0-100.0); Mean Platelet Volume 10.2 fL (9.4-12.4); Monocytes # 0.8 K/mcL (0.0-1.3); Neutrophils # 10.9 K/mcL (1.6-8.9); Platelet Count 166 K/mcL (140-400); Red Blood Count 4.44 M/mcL (3.82-4.97); Red Cell Distribution Width 13.4 % (11.5-14.5); Segmented Neutrophils % 79.7 %; White Blood Count 13.7 K/mcL (4.3-11.1)
[2021-03-16 02:43] LABS: BUN/Creatinine Ratio 63 (6-26); Blood Urea Nitrogen 49 mg/dL (8-23); Calcium 8.6 mg/dL (8.6-10.3); Carbon Dioxide 20 mEq/L (23-29); Chloride 105 mEq/L (98-107); Glucose 141 mg/dL (70-105); Osmolality,Calculated 293 (280-300); Potassium 4.8 mEq/L (3.5-5.1); Sodium 134 mEq/L (136-145); eGFR For African Americans > 60 (> 60); eGFR For Non-African Americans > 60 (> 60)
[2021-03-16] MEDS: Sennosides/Docusate Sodium TABLET PO SCH ×2 (08:27→22:15)
[2021-03-16] MEDS: *HR* Rivaroxaban 15 MG TABLET PO SCH ×2 (08:27→22:14)
[2021-03-16] MEDS: dexAMETHasone 4 MG TABLET PO SCH (08:27)
[2021-03-16] MEDS: atenoloL 50 MG TABLET PO SCH (08:28)
[2021-03-16] MEDS: Magic Mouthwash 10 ML UD Cup PO SCH ×3 (08:28→17:03)
[2021-03-16] MEDS: Melatonin 3 MG TABLET PO SCH (22:14)
[2021-03-17 07:38] LABS: Basophils % 0.1 %; Eosinophils # 0.4 K/mcL (0.0-0.6); Eosinophils % 2.6 %; Hematocrit 39.9 % (35.3-44.9); Lymphocytes # 2.2 K/mcL (0.6-4.6); Lymphocytes % 16.1 %; Mean Corpuscular HGB Conc 32.6 g/dL (31.6-35.5); Mean Corpuscular Hemoglobin 30.7 pg (28.0-33.3); Mean Corpuscular Volume 94.3 fL (83.0-100.0); Monocytes # 0.9 K/mcL (0.0-1.3); Monocytes % 6.5 %; Neutrophils # 9.9 K/mcL (1.6-8.9); Platelet Count 142 K/mcL (140-400); Red Blood Count 4.23 M/mcL (3.82-4.97); Red Cell Distribution Width 13.7 % (11.5-14.5); Segmented Neutrophils % 73.7 %; White Blood Count 13.5 K/mcL (4.3-11.1)
[2021-03-17 07:59] LABS: BUN/Creatinine Ratio 68 (6-26); Blood Urea Nitrogen 47 mg/dL (8-23); Calcium 8.9 mg/dL (8.6-10.3); Carbon Dioxide 23 mEq/L (23-29); Chloride 106 mEq/L (98-107); Glucose 100 mg/dL (70-105); Osmolality,Calculated 294 (280-300); Potassium 4.4 mEq/L (3.5-5.1); Sodium 136 mEq/L (136-145); eGFR For African Americans > 60 (> 60); eGFR For Non-African Americans > 60 (> 60)
[2021-03-17] MEDS: Magic Mouthwash 10 ML UD Cup PO SCH ×3 (08:52→16:39)
[2021-03-17] MEDS: *HR* Rivaroxaban 15 MG TABLET PO SCH ×2 (08:52→20:35)
[2021-03-17] MEDS: atenoloL 50 MG TABLET PO SCH (08:52)
[2021-03-17] MEDS: dexAMETHasone 4 MG TABLET PO SCH (08:52)
[2021-03-17] MEDS: Sennosides/Docusate Sodium TABLET PO SCH ×2 (08:52→20:35)
[2021-03-17] MEDS: Melatonin 3 MG TABLET PO SCH (20:35)
[2021-03-18 02:33] LABS: Basophils % 0.2 %; Eosinophils # 0.1 K/mcL (0.0-0.6); Eosinophils % 1.3 %; Hematocrit 36.1 % (35.3-44.9); Hemoglobin 12.1 g/dL (11.5-15.4); Immature Granulocytes % 1.2 % (0-4); Lymphocytes # 1.5 K/mcL (0.6-4.6); Lymphocytes % 13.8 %; Mean Corpuscular HGB Conc 33.5 g/dL (31.6-35.5); Mean Corpuscular Hemoglobin 31.2 pg (28.0-33.3); Mean Platelet Volume 10.1 fL (9.4-12.4); Monocytes # 0.8 K/mcL (0.0-1.3); Monocytes % 6.8 %; Neutrophils # 8.4 K/mcL (1.6-8.9); Platelet Count 139 K/mcL (140-400); Red Blood Count 3.88 M/mcL (3.82-4.97); Red Cell Distribution Width 13.8 % (11.5-14.5); Segmented Neutrophils % 76.7 %
[2021-03-18 02:47] LABS: BUN/Creatinine Ratio 66 (6-26); Blood Urea Nitrogen 45 mg/dL (8-23); Calcium 8.6 mg/dL (8.6-10.3); Carbon Dioxide 21 mEq/L (23-29); Chloride 108 mEq/L (98-107); Glucose 122 mg/dL (70-105); Osmolality,Calculated 293 (280-300); Potassium 4.5 mEq/L (3.5-5.1); Sodium 135 mEq/L (136-145); eGFR For African Americans > 60 (> 60); eGFR For Non-African Americans > 60 (> 60)
[2021-03-18 07:15] VITALS: BP 131/78
[2021-03-18] MEDS: dexAMETHasone 4 MG TABLET PO SCH (08:22)
[2021-03-18] MEDS: Sennosides/Docusate Sodium TABLET PO SCH (08:22)
[2021-03-18] MEDS: atenoloL 50 MG TABLET PO SCH (08:22)
[2021-03-18] MEDS: Magic Mouthwash 10 ML UD Cup PO SCH ×2 (08:35→12:46)
[2021-03-18] MEDS ORDERED: *HR* Rivaroxaban 10 MG TABLET PO SCH (17:00)
== END 2021-03-18 14:00 | disposition home health service (06) | DRG 871 ==
LOC: 2NENU 19:57 → EMEROOARM 19:57 → SUATTDRO 23:15 → 2NENU 23:46 → 2NNU 02-28 13:43 → SUATTDRO 02-28 14:01 → 2NENU 03-11 09:28 → 3BNU 03-17 18:17
PROVIDERS: ADMIT Family Medicine; ATTEND Family Medicine

== ENCOUNTER 2022-01-02 06:05 | Inpatient (IN) ==
[~2022-01-02 06:05] MED LIST: Vancomycin 1,000 MG, Sodium Chloride IRRigation 1,000 ML IR ONE
[2022-01-02] MEDS ORDERED: *HR* FentaNYL (PF) 100 MCG/2 ML VIAL ONE ×2 (06:56→10:59)
[2022-01-02] MEDS ORDERED: Lidocaine HCL 4 ML Topical Solution (Laryng-O-Jet Kit Sterile Pak) TP ONE (06:56)
[2022-01-02] MEDS ORDERED: CeFAZolin Syr 3,000MG/30 ML 3,000 MG/30 ML SYRINGE IVPB ONE (06:57)
[2022-01-02] MEDS ORDERED: *HR* Propofol 200 MG/20 ML VIAL IVP ONE (06:57)
[2022-01-02] MEDS ORDERED: Lidocaine -MPF 2% 5 ML VIAL ONE (06:59)
[2022-01-02] MEDS ORDERED: Ondansetron 4 MG/2 ML VIAL ONE (06:59)
[2022-01-02] MEDS ORDERED: *HR* Succinylcholine 200 MG/10 ML VIAL IVP ONE (06:59)
[2022-01-02] MEDS ORDERED: *HR* Rocuronium Bromide 50 MG/5 ML VIAL ONE ×2 (06:59→08:54)
[2022-01-02] MEDS ORDERED: Ringers Solution, Lactated 1,000 ML IVC SCH (07:00)
[2022-01-02] MEDS ORDERED: Heparin 1,000 UNITS/500 mL 500 ML ONE (07:19)
[2022-01-02] MEDS ORDERED: Vancomycin 1,000 MG VIAL ONE (07:19)
[2022-01-02] MEDS ORDERED: Bupivacaine-MPF 0.25% 10 ML VIAL ONE (07:19)
[2022-01-02] MEDS ORDERED: *HR* Vasopressin 20 UNIT/ML VIAL ONE (07:33)
[2022-01-02] MEDS ORDERED: *HR* HYDROmorphone PF 0.5 MG/0.5 ML SYRINGE IVP PRN (07:36)
[2022-01-02] MEDS ORDERED: *HR* Labetalol 20 MG/4 ML SYRINGE IVP PRN ×2 (07:36→12:34)
[2022-01-02] MEDS ORDERED: Albuterol 2.5 MG/3 ML NEBULIZER IH PRN (07:36)
[2022-01-02] MEDS ORDERED: *HR* OxyCODONE Immed Rel 5 MG TABLET PO PRN ×2 (07:36→12:34)
[2022-01-02] MEDS ORDERED: Metoclopramide 10 MG/2 ML VIAL IVP PRN (07:36)
[2022-01-02] MEDS ORDERED: Ondansetron 4 MG/2 ML VIAL IVP PRN ×2 (07:36→12:34)
[2022-01-02] MEDS ORDERED: Vancomycin 2,000 MG/520 ML IV.SOLN IVPB ONE ×2 (08:00→20:00)
[2022-01-02] MEDS ORDERED: EPHEDrine 50 MG/ML VIAL ONE (08:47)
[2022-01-02] MEDS ORDERED: Sugammadex Sodium 200 MG/2 ML VIAL IV ONE (10:46)
[2022-01-02] MEDS ORDERED: Acetaminophen 325 MG TABLET PO PRN (12:34)
[2022-01-02] MEDS ORDERED: Naloxone 0.4 MG/ML INJ IVP PRN (12:34)
[2022-01-02] MEDS ORDERED: *HR* HYDROcodone/Acet 5/325 mg TABLET PO PRN (12:34)
[2022-01-02] MEDS ORDERED: 0.9 % Sodium Chloride 1,000 ML IVC SCH (12:34)
[2022-01-02] MEDS: *HR* Metoprolol 5 MG/5 ML VIAL IVP SCH ×3 (13:51→23:53)
[2022-01-02] MEDS: CeFAZolin 2,000 MG/120 ML BAG IVPB SCH ×2 (15:41→23:51)
[2022-01-03 02:14] LABS: Basophils % 0.3 %; Eosinophils % 0.4 %; Hematocrit 32.9 % (35.3-44.9); Hemoglobin 10.3 g/dL (11.5-15.4); Immature Granulocytes % 0.4 % (0-4); Lymphocytes # 2.3 K/mcL (0.6-4.6); Lymphocytes % 22.5 %; Mean Corpuscular HGB Conc 31.3 g/dL (31.6-35.5); Mean Corpuscular Hemoglobin 29.9 pg (28.0-33.3); Mean Corpuscular Volume 95.6 fL (83.0-100.0); Mean Platelet Volume 11.5 fL (9.4-12.4); Monocytes # 0.8 K/mcL (0.0-1.3); Monocytes % 8.3 %; Neutrophils # 6.9 K/mcL (1.6-8.9); Platelet Count 136 K/mcL (140-400); Red Blood Count 3.44 M/mcL (3.82-4.97); Red Cell Distribution Width 14.2 % (11.5-14.5); Segmented Neutrophils % 68.1 %; White Blood Count 10.1 K/mcL (4.3-11.1)
[2022-01-03 02:30] LABS: BUN/Creatinine Ratio 18 (6-26); Blood Urea Nitrogen 18 mg/dL (8-23); Calcium 7.8 mg/dL (8.6-10.3); Carbon Dioxide 22 mEq/L (23-29); Chloride 110 mEq/L (98-107); Glucose 111 mg/dL (70-105); Osmolality,Calculated 293 (280-300); Potassium 4.2 mEq/L (3.5-5.1); Sodium 140 mEq/L (136-145); eGFR For African Americans > 60 (> 60); eGFR For Non-African Americans 56 (> 60)
[2022-01-03] MEDS: *HR* Metoprolol 5 MG/5 ML VIAL IVP SCH ×4 (05:17→23:30)
[2022-01-03] MEDS: *HR* Heparin 5,000 UNIT/ML VIAL SQ SCH ×2 (05:22→16:37)
[2022-01-03] MEDS ORDERED: *HR* Heparin 5,000 UNIT/ML VIAL SQ SCH (06:00)
[2022-01-03] MEDS: sulfaSALAzine 500 MG TABLET PO SCH (08:37)
[2022-01-03] MEDS: Cholecalciferol (D-3) 1,000 UNIT (25MCG) TABLET PO SCH (08:37)
[2022-01-03] MEDS: atenoloL 50 MG TABLET PO SCH (08:38)
[2022-01-03] MEDS: CeFAZolin 2,000 MG/120 ML BAG IVPB SCH ×3 (08:38→23:30)
[2022-01-03] MEDS: lisinopriL 20 MG TABLET PO SCH (08:38)
[2022-01-03] MEDS: Vitamin B Complex/Vit C/Vit E 1 EACH TABLET PO SCH (08:38)
[2022-01-03] MEDS ORDERED: NON-FORMULARY MEDICATION 1 EACH EACH (Biotin 10,000 MCG Capsule) PO SCH (09:00)
[2022-01-04 04:47] VITALS: O2SAT 96
[2022-01-04] MEDS: *HR* Metoprolol 5 MG/5 ML VIAL IVP SCH (05:01)
[2022-01-04] MEDS: *HR* Heparin 5,000 UNIT/ML VIAL SQ SCH (05:01)
[2022-01-04 05:47] VITALS: PULSE 74
[2022-01-04 07:07] VITALS: BP 166/59; TEMP 99
[2022-01-04] MEDS: atenoloL 50 MG TABLET PO SCH (07:30)
[2022-01-04] MEDS: sulfaSALAzine 500 MG TABLET PO SCH (07:30)
[2022-01-04] MEDS: Vitamin B Complex/Vit C/Vit E 1 EACH TABLET PO SCH (07:30)
[2022-01-04] MEDS: lisinopriL 20 MG TABLET PO SCH (07:31)
[2022-01-04] MEDS: CeFAZolin 2,000 MG/120 ML BAG IVPB SCH (07:31)
[2022-01-04] MEDS: Cholecalciferol (D-3) 1,000 UNIT (25MCG) TABLET PO SCH (07:31)
== END 2022-01-04 09:15 | disposition home or self-care (01) | DRG 253 ==
LOC: SAMDAY 06:05 → 2NNU 12:25
PROVIDERS: ADMIT Surgery; ATTEND Surgery

== ENCOUNTER 2022-07-30 09:55 | Inpatient (IN) ==
[2022-07-30] MEDS ORDERED: Lidocaine -MPF 2% 5 ML VIAL ONE (10:10)
[2022-07-30] MEDS ORDERED: Lidocaine HCL 4 ML Topical Solution (Laryng-O-Jet Kit Sterile Pak) TP ONE (10:10)
[2022-07-30] MEDS ORDERED: *HR* Succinylcholine 200 MG/10 ML VIAL IVP ONE (10:10)
[2022-07-30] MEDS ORDERED: *HR* Rocuronium Bromide 50 MG/5 ML VIAL ONE ×3 (10:10→14:58)
[2022-07-30] MEDS ORDERED: Ondansetron 4 MG/2 ML VIAL ONE (10:10)
[2022-07-30] MEDS ORDERED: *HR* FentaNYL (PF) 100 MCG/2 ML VIAL ONE ×2 (10:13→14:07)
[2022-07-30] MEDS ORDERED: *HR* Propofol 200 MG/20 ML VIAL IVP ONE (10:13)
[2022-07-30] MEDS ORDERED: CeFAZolin Syr 2,000MG/20 ML 2,000 MG/20 ML SYRINGE IVPB ONE (10:15)
[2022-07-30] MEDS ORDERED: Ringers Solution, Lactated 1,000 ML IVC SCH (10:15)
[2022-07-30] MEDS ORDERED: Vancomycin 2,000 MG/520 ML IV.SOLN IVPB ONE (11:00)
[2022-07-30] MEDS ORDERED: *HR* HYDROmorphone PF 0.5 MG/0.5 ML SYRINGE IVP PRN (11:15)
[2022-07-30] MEDS ORDERED: Ondansetron 4 MG/2 ML VIAL IVP PRN (11:15)
[2022-07-30] MEDS ORDERED: *HR* OxyCODONE Immed Rel 5 MG TABLET PO PRN (11:15)
[2022-07-30] MEDS ORDERED: Vancomycin 1,000 MG, Sodium Chloride IRRigation 1,000 ML IR ONE (11:35)
[2022-07-30] MEDS ORDERED: Protamine Sulfate 50 MG/5 ML VIAL IVP ONE (12:00)
[2022-07-30] MEDS ORDERED: Bupivacaine-MPF 0.25% 10 ML VIAL ONE (12:01)
[2022-07-30] MEDS ORDERED: Heparin 1,000 UNITS/500 mL 500 ML ONE (12:01)
[2022-07-30] MEDS ORDERED: *HR* Phenylephrine 10 MG/ML VIAL ONE (12:01)
[2022-07-30] MEDS ORDERED: *HR* Heparin 5,000 UNIT/ML VIAL ONE (12:52)
[2022-07-30] MEDS ORDERED: *HR* Magnesium Sulfate 1 GM/2 ML VIAL ONE (13:10)
[2022-07-30] MEDS ORDERED: *HR* HYDROMORPHONE 2 MG/ML VIAL ONE (17:31)
[2022-07-30] MEDS ORDERED: Acetaminophen 325 MG TABLET PO PRN (18:53)
[2022-07-30] MEDS ORDERED: *HR* Labetalol 20 MG/4 ML SYRINGE IVP PRN (18:53)
[2022-07-30] MEDS ORDERED: Naloxone 0.4 MG/ML INJ IVP PRN (18:53)
[2022-07-30] MEDS ORDERED: 0.9 % Sodium Chloride 1,000 ML IVC SCH (18:53)
[2022-07-30] MEDS ORDERED: RITUXIMAB IV SCH (18:53)
[2022-07-30] MEDS: *HR* Metoprolol 5 MG/5 ML VIAL IVP SCH (20:10)
[2022-07-30] MEDS: CeFAZolin 2 GM/120 ML BAG IVPB SCH (21:00)
[2022-07-31] MEDS ORDERED: Vancomycin 2,000 MG/520 ML IV.SOLN IVPB ONE
[2022-07-31] MEDS: *HR* Metoprolol 5 MG/5 ML VIAL IVP SCH ×2 (00:22→05:08)
[2022-07-31] MEDS: *HR* HYDROcodone/Acet 5/325 mg TABLET PO PRN ×2 (00:43→20:31)
[2022-07-31] MEDS: CeFAZolin 2 GM/120 ML BAG IVPB SCH (05:07)
[2022-07-31] MEDS: *HR* Heparin 5,000 UNIT/ML VIAL SQ SCH ×2 (05:07→20:21)
[2022-07-31] MEDS: *HR* OxyCODONE Immed Rel 5 MG TABLET PO PRN ×2 (05:07→12:58)
[2022-07-31 05:25] LABS: Basophils % 0.3 %; Eosinophils % 0.1 %; Hematocrit 28.7 % (35.3-44.9); Hemoglobin 9.2 g/dL (11.5-15.4); Immature Granulocytes % 0.5 % (0-4); Lymphocytes # 1.6 K/mcL (0.6-4.6); Lymphocytes % 14.9 %; Mean Corpuscular HGB Conc 32.1 g/dL (31.6-35.5); Mean Corpuscular Hemoglobin 30.7 pg (28.0-33.3); Mean Corpuscular Volume 95.7 fL (83.0-100.0); Mean Platelet Volume 11.1 fL (9.4-12.4); Monocytes # 0.7 K/mcL (0.0-1.3); Monocytes % 6.6 %; Neutrophils # 8.4 K/mcL (1.6-8.9); Platelet Count 141 K/mcL (140-400); Red Cell Distribution Width 13.1 % (11.5-14.5); Segmented Neutrophils % 77.6 %; White Blood Count 10.8 K/mcL (4.3-11.1)
[2022-07-31 05:42] LABS: Calcium 6.6 mg/dL (8.6-10.3); Potassium 4.4 mEq/L (3.5-5.1)
[2022-07-31] MEDS ORDERED: *HR* Heparin 5,000 UNIT/ML VIAL SQ SCH (06:00)
[2022-07-31] MEDS: Cholecalciferol (D-3) 1,000 UNIT (25MCG) TABLET PO SCH (08:22)
[2022-07-31] MEDS: Vitamin B Complex/Vit C/Vit E 1 EACH TABLET PO SCH (08:23)
[2022-07-31] MEDS: Multivit/Ca/Min/Fe/FA 1 TAB TABLET PO SCH (08:24)
[2022-07-31] MEDS: sulfaSALAzine 500 MG TABLET PO SCH (08:24)
[2022-07-31] MEDS ORDERED: NON-FORMULARY MEDICATION 1 EACH EACH (Biotin 10,000 MCG Capsule) PO SCH (09:00)
[2022-07-31] MEDS: lisinopriL 20 MG TABLET PO SCH (18:47)
[2022-07-31] MEDS: atenoloL 50 MG TABLET PO SCH (18:47)
[2022-08-01] MEDS: *HR* OxyCODONE Immed Rel 5 MG TABLET PO PRN (03:09)
[2022-08-01] MEDS: *HR* Heparin 5,000 UNIT/ML VIAL SQ SCH (05:22)
[2022-08-01] MEDS: Vitamin B Complex/Vit C/Vit E 1 EACH TABLET PO SCH (08:05)
[2022-08-01 08:06] VITALS: BP 138/59; PULSE 73; TEMP 99; O2SAT 100
[2022-08-01] MEDS: Cholecalciferol (D-3) 1,000 UNIT (25MCG) TABLET PO SCH (08:06)
[2022-08-01] MEDS: lisinopriL 20 MG TABLET PO SCH (08:06)
[2022-08-01] MEDS: atenoloL 50 MG TABLET PO SCH (08:06)
[2022-08-01] MEDS: sulfaSALAzine 500 MG TABLET PO SCH (08:06)
[2022-08-01] MEDS: Multivit/Ca/Min/Fe/FA 1 TAB TABLET PO SCH (08:06)
[2022-08-01] MEDS: *HR* HYDROcodone/Acet 5/325 mg TABLET PO PRN (08:06)
== END 2022-08-01 10:22 | disposition home or self-care (01) | DRG 253 ==
LOC: SAMDAY 09:55 → 2NNU 18:45
PROVIDERS: ADMIT Surgery; ATTEND Surgery